=== PATIENT | male | born 1945 | race Caucasian/White ===

== ENCOUNTER 2019-09-24 20:26 | Inpatient (IN) | payer MEDICARE ==
[~2019-09-24] VITALS: Ht 177.8 cm; Wt 91.2 kg
[~2019-09-24 20:26] MED LIST: ACETAMINOPHEN325 M1 PO; AGGRENOX 25 MG1 EACH PO; AVODART0.5 MG PO; BACLOFEN 10MG T10 MG PO; BISACODYL SUPP10 MG RE; CLONAZEPAM 0.50.5 M1 PO; CLOTRIMAZOLE-BE15 GM TP; COQ-10100 MG PO; ENDOCET 5-3251 EACH PO; FELODIPINE 5 MG5 M1 PO; FLOVENT DISKUS50 MCG IH; GRALISE600 MG PO; HYDROCODON-ACE1 EAC7 PO; KAOPECTATE240 MG PO; LEVOTHYROXINE0.2 M1 PO; LEXAPRO20 MG PO; LIMBREL 500 MG500 MG PO; MIRALAX255 GM PO; MULTIVITAMINS1 EAC7 PO; MYLANTA GAS MA125 MG PO; NITROSTAT0.4 MG SL; OMEGA-31000 M1 PO; PANTOPRAZOLE SO40 M1 PO; POTASSIUM CHLO20 ME1 PO; TAMSULOSIN HCL0.4 M1 PO; VITAMIN D1000 UNI1 PO; VITAMINC500 PO; ZETIA10 MG PO; [UNRECOGNIZED DRUG - CODE] PO
[2019-09-24 20:36] VITALS: BP 136/76
[2019-09-24] MEDS ORDERED: LEVO-T75 MCG PO (21:10)
[2019-09-24] MEDS ORDERED: ASPERCREME1 EACH TOP (21:12)
[2019-09-24] MEDS ORDERED: AGGRENOX 25 MG1 EACH PO (21:12)
[2019-09-24] MEDS ORDERED: KEFLEX500 M1 PO (21:13)
[2019-09-24] MEDS ORDERED: DEPAKOTE 250MG250 M1 PO (21:13)
[2019-09-24] MEDS ORDERED: PROSCAR 5MG TABL5 M1 PO (21:13)
[2019-09-24] MEDS ORDERED: BRILINTA90 MG PO (21:15)
[2019-09-24] MEDS ORDERED: ZYPREXA2.5 MG PO (21:15)
[2019-09-24] MEDS ORDERED: ELMIRON 100 MG100 M1 PO (21:15)
[2019-09-24] MEDS ORDERED: MICONAZOLE5 GM (21:16)
[2019-09-24] MEDS ORDERED: ASACOL HD800 MG PO (21:16)
[2019-09-24] MEDS ORDERED: ZETIA10 MG PO (21:17)
[2019-09-24] MEDS ORDERED: NYSTATIN1 EA10 (21:17)
[2019-09-24] MEDS ORDERED: IRON325 M1 PO (21:17)
[2019-09-24] MEDS ORDERED: CALMOSEPTINE O3.5 GM (21:18)
[2019-09-24] MEDS ORDERED: VOLTAREN GEL 1100 G1 TOP (21:18)
[2019-09-24] MEDS ORDERED: SANTYL OINTMENT30 G1 TOP (21:18)
[2019-09-24] MEDS ORDERED: TENDERWRAP UNN1 EACH (21:19)
[2019-09-24] MEDS ORDERED: CETAPHIL1 EACH (21:19)
[2019-09-24 21:38] LABS: ABSOLUTE LYMPHOCYTES 0.4 thou/uL (0.8-5.3); ABSOLUTE MONOCYTES 1.8 thou/uL (0.0-1.2); ABSOLUTE NEUTROPHILS 12.6 thou/uL (1.6-8.1); BASOPHILS 0.2 %; HEMATOCRIT 40.4 % (42.0-52.0); HEMOGLOBIN 13.3 gm/dL (14.0-18.0); LYMPHOCYTES 2.9 %; MCH 27.6 pg (26.0-34.0); MCV 83.5 fL (80.0-100.0); MONOCYTES 12.2 %; MPV 7.2 fl. (7.2-11.1); NUCLEATED RBCS 0 /100WBC; PLATELET COUNT* 338 thou/uL (150-400); POLYS 84.7 %; RBC 4.84 mil/uL (4.50-6.00); RDW-CV 16.2 % (10.5-14.5); WBC 14.9 thou/uL (4.0-11.0)
[2019-09-24 21:44] LABS: ICTOTEST (BILI CONFIRMATORY) Negative (Negative); URINE BILIRUBIN 1+ (Negative); URINE BLOOD 3+ (Negative); URINE GLUCOSE-RANDOM NEGATIVE (Negative); URINE KETONES NEGATIVE (Negative); URINE LEUKOCYTES-REFLEX 1+ (Negative); URINE NITRITE-REFLEX NEGATIVE (Negative); URINE PROTEIN TRACE (Negative); URINE UROBILINOGEN 0.2 E.U./dl (0.2-1.0)
[2019-09-24 21:45] LABS: URINE CLARITY CLOUDY; URINE COLOR RED
[2019-09-24 21:48] LABS: CALCIUM 9.2 mg/dL (8.5-10.1); CREATININE 1.4 mg/dL (0.6-1.3); POTASSIUM 3.6 mmol/L (3.5-5.1)
[2019-09-24 21:50] LABS: INR 1.4; PROTIME 14.1 Seconds (9.20-11.50)
[2019-09-24 21:57] LABS: CASTS None Seen /LPF (None Seen); CRYSTALS None Seen /LPF (None Seen); SQUAMOUS NONE SEEN /LPF (0-3); URINE RBC >20 Many /HPF (0-2); URINE WBC-REFLEX >25 Many /HPF (0-5)
[2019-09-24 21:58] LABS: ALBUMIN 2.8 g/dL (3.4-5.0); TOTAL BILIRUBIN 0.5 mg/dL (<0.1-1.0); TOTAL PROTEIN 7.6 g/dL (6.4-8.2)
[2019-09-24 22:04] LABS: AMP/METHAMP Negative (Negative); BARBITURATES Negative (Negative); BENZODIAZEPINES Negative (Negative); COCAINE Negative (Negative); METHADONE Negative (Negative); OPIATES Negative (Negative); PCP Negative (Negative); THC Negative (Negative)
[2019-09-25 00:05] VITALS: BP 117/58
[2019-09-25 00:30] VITALS: BP 96/63
--- NOTE | 2019-09-25 05:59 | NUR ---
PATIENT ARRIVED AT MIDNIGHT. VERY DEHYDRATED ENCOURAGED PLENTY OF FLUIDS UPON ARRIVAL, TECH SWABBED AND CLEANED HIS MOUTH WE WIPED DOWN FACE, HANDS AND MOUTH AND EYES. HE APPEARS NEGLECTED WITH APPEARANCE. HE HAS A SIGNIFICANT PRESSURE ULCER ON HIS BUTTOCKS STAGE 2 POSSIBLY PHOTO IN CHART. I ADMINISTERED ZOFRAN AND MORPHINE AND HE WAS ABLE TO SLEEP THROUGH THE NIGHT. KEPT FLUIDS RUNNING AND DID HOURLY ROUNDS. HE WAS ABLE TO SPEAK THAT HE WAS IN SOME PAIN AND THAT HE PREFERRED TO KEEP THE LIGHTS ON ALL NIGHT.
--- NOTE | 2019-09-25 11:00 | NUR ---
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 PER NURSING PT.IS USUALLY LOUD AND UNCOOPERATIVE AT [facility]. HE IS QUIET HERE. SLEEPS ALOT. PER FRIEND, MABEL EDDY, SHE IS HIS DPOA. [facility] HAS GIVEN HIM 2 MORE WEEKS TO LIVE THERE DUE TO HIS BEHAVIORS. SHE HAS BEEN LOOKING AT OTHER FACILITIES AND SOME BEHAVIOR UNITS. CM WILL FOLLOW AND SPEAK WITH [facility] TOMORROW.
[2019-09-25 15:42] VITALS: BP 107/67
--- NOTE | 2019-09-25 18:20 | NUR ---
PT A&Ox2. REFUSED MORNING VITALS. REFUSED PO MEDICATIONS. STATING THAT HE HAS SOME BACK PAIN BUT REFUSED THE TYLENOL THAT IS ON HIS EMAR. IV PATENT, INFUSING. BEDREST. PRAFO BOOTS IN PLACE. LET US REPOSITION HIM TWICE. FALL PRECAUTIONS IN [place]. CALL LIGHT WITHIN REACH. WILL CONTINUE TO MONITOR.
[2019-09-26] VITALS: BP 111/58
[2019-09-26 03:54] LABS: ABSOLUTE LYMPHOCYTES 0.3 thou/uL (0.8-5.3); ABSOLUTE MONOCYTES 2.1 thou/uL (0.0-1.2); ABSOLUTE NEUTROPHILS 13.4 thou/uL (1.6-8.1); BASOPHILS 0.3 %; EOSINOPHILS 0.1 %; HEMATOCRIT 36.7 % (42.0-52.0); LYMPHOCYTES 1.9 %; MCH 27.5 pg (26.0-34.0); MCHC 32.6 g/dL (28.0-37.0); MCV 84.3 fL (80.0-100.0); NUCLEATED RBCS 0 /100WBC; POLYS 84.7 %; RBC 4.36 mil/uL (4.50-6.00); RDW-CV 16.2 % (10.5-14.5); WBC 15.8 thou/uL (4.0-11.0)
[2019-09-26 03:59] LABS: PLATELET COUNT* 262 thou/uL (150-400)
[2019-09-26 04:16] LABS: CALCIUM 8.2 mg/dL (8.5-10.1); POTASSIUM 4.1 mmol/L (3.5-5.1)
--- NOTE | 2019-09-26 04:55 | NUR ---
PATIENT EASILY AWAKENED. ORIENTED X 1-2. CONFLICTING REPONSES TO QUESTIONS. DID HAVE A CONVERSATION THAT PATIENT TALKED ABOUT HIS PREVIOUS WORK. ALTHOUGH RELUCTANT WITH CARES INCLUDING TURNS AND CARMELINA-CARE WITH INCONT VOIDS WAS COOPERATIVE AND NURSING WAS ABLE TO PROVIDED. VITAL SIGNS STABLE. IVF'S PER ORDER. DAILY AM ANTIBIOTIC. BEDREST. HIGH FALL RISK. BED ALARM UTILIZED. CONTINUE TO MONITOR.
[2019-09-26 11:20] VITALS: BP 118/49
[2019-09-26 16:00] VITALS: BP 120/46
--- NOTE | 2019-09-26 18:38 | NUR ---
ASSUMMED CARE OF PT AT 0730, PT USING FOUL LANGUAGE, WANTS TO BE LEFT ALONE IV PATENT AND INFUSING IN RIGHT FA, BUT CARES ABLE TO BE COMPLETED, NO HITTING OUT THIS SHIFT, PT INCONTINENT CONTINUOSLY OF FOUL SMELLING URINE AND SMEARS OF STOOL, REPOSTIONED EVERY 2 HOURS, PT TO HAVE CT SCANS, AND PT DID DRINK CONTRAST, CT COMPLETED, PT C/O PAIN IN OUTER AREA OF EAR, NOTED SOME REDNESS IN EAR BUT PT HAD BEEN PICKING AT HIS EAR, GLOVE TO LEFT HAND FROM PREVIOUS STROKE, BOOTS TO BILATERAL FEET, BUTTOCKS EXCORIATED, SCROTAL AREA REDDENED, SCABS, BRUISES NOTED, TOOK SMALL AMOUJNT OF CL LIQUIDS DIET, O2 ON AT 5 LITERS SATS OF 96% HOURLY ROUNDING COMPLETED, ASSESSMENT COMPLETE, WILL CONTINUE TO MONITOR.
[2019-09-27] VITALS: BP 121/77
--- NOTE | 2019-09-27 05:03 | NUR ---
PATIENT ALERT AND ORIENTED X 2. REMEMBERING NAMES OF STAFF AND RECALLING IN FRAGMENTS AND IN A REPETATIVE NATURE CONVERSATIONS WITH STAFF. CALLING OUT TONIGHT FOR HELP AND THEN DIRECTING STAFF FOR NEEDS. MANY OF THESE REQUESTS ARE ALSO REPETITIVE IN NATURE. AN EXAMPLE IS TO PUT HIS PHONE IN HIS POCKET. WHEN TOLD HIS PHONE IS NOT HERE HE REPLIES THAT IT IS AND WAS ON THE TABLE YESTERDAY. REMAINS INCONT OF URINE. TURNS AND CARMELINA-CARE Q2H. PRAFO'S TO BILAT FEET. ISOTONER GLOVE LEFT HAND. VITAL SIGNS STABLE ON 5L/MIN O2. CONTINUE TO MONITOR.
[2019-09-27 08:00] VITALS: BP 116/72
[2019-09-27 08:43] LABS: HEMATOCRIT 35.5 % (42.0-52.0); HEMOGLOBIN 11.8 gm/dL (14.0-18.0); MCH 27.4 pg (26.0-34.0); MCHC 33.2 g/dL (28.0-37.0); MCV 82.7 fL (80.0-100.0); NUCLEATED RBCS 0 /100WBC; PLATELET COUNT* 309 thou/uL (150-400); RBC 4.29 mil/uL (4.50-6.00); RDW-CV 16.1 % (10.5-14.5); WBC 14.2 thou/uL (4.0-11.0)
[2019-09-27 08:54] LABS: ALBUMIN 2.3 g/dL (3.4-5.0); CALCIUM 8.5 mg/dL (8.5-10.1); POTASSIUM 3.8 mmol/L (3.5-5.1); TOTAL BILIRUBIN 0.6 mg/dL (<0.1-1.0); TOTAL PROTEIN 6.9 g/dL (6.4-8.2)
[2019-09-27 09:12] LABS: ABSOLUTE LYMPHOCYTES 1.1 thou/uL (0.8-5.3); ABSOLUTE MONOCYTES 0.6 thou/uL (0.0-1.2); ABSOLUTE NEUTROPHILS 12.5 thou/uL (1.6-8.1); PLATELET ESTIMATE ADEQUATE
--- NOTE | 2019-09-27 12:15 | NUR ---
Nutrition: Pt admitted with UTI, AMS. Seen for pressure ulcer on coccyx and buttocks. Alb 2.3, prealb 12.8, WBC 14.2. H/o dementia, PVD, CVA, CAD. Wt: 201#. CLD. RD ordered Raul packets for wound healing. Increased nutrient needs R/T wound healing AEB pressure ulcer on coccyx. GOALS: >75% meal intake, Raul TID. Recommend MVI as well. Mild risk.
--- NOTE | 2019-09-27 13:56 | EKG ---
[place] [address] ELECTROCARDIOGRAM REPORT Name: SWATI BURNSD Rajesh Room: [address] IN [facility]#: [id number] Admission: 09/24/19 Attend Phys: Emma Hall, Discharge: Date of : 47 Date of Service: 09/24/192049 Report #: [id number] THIS REPORT FOR: cc: Salas Ruano MD, Todd A. MD Holkins,Satya De La Rosa MD [facility] ~ THIS REPORT FOR: //name// [facility] ED Test Date: 2019-09-24 Test Time: 20:50:23 Pat Name: JACE BURNS Department: Room: [facility] Gender: M Video Tape Editor: OK : 1945 Requested By: Xena Pate Order Number: [id number] MD: Satya Laird Measurements Intervals [place] Rate: 90 P: 60 IN: 236 QRS: -83 QRSD: 143 T: 73 QT: 395 QTc: 484 Interpretive Statements Sinus rhythm Prolonged IN interval RBBB and LAFB Baseline wander in lead(s) V5 No previous ECG available for comparison Electronically Signed On 09-25-2019 16:07:10 IRON CASTER by Satya Laird [email or web address] <ELECTRONICALLY SIGNED> By: Satya Laird MD, [facility] 09/25/191606 49 49 Satya Laird MD, [facility] /EPI
[2019-09-27 15:31] LABS: URINE BILIRUBIN NEGATIVE (Negative); URINE BLOOD 2+ (Negative); URINE CLARITY SL CLOUDY; URINE COLOR DARK YELLOW; URINE GLUCOSE-RANDOM NEGATIVE (Negative); URINE KETONES NEGATIVE (Negative); URINE LEUKOCYTES 1+ (Negative); URINE NITRITE NEGATIVE (Negative); URINE PROTEIN TRACE (Negative); URINE SPECIFIC GRAVITY 1.015 (1.005-1.030); URINE UROBILINOGEN 0.2 E.U./dl (0.2-1.0)
--- NOTE | 2019-09-27 15:36 | NUR ---
ATTEMPTED TO COMPLETE A BEDSIDE SWALLOW EVAL, BUT PT REFUSED PO INTAKE AFTER 2 SIPS OF THIN BY SPOON. PT EXHIBITED A WET VOCAL QUALITY WITH THE SECOND SIP OF THIN BY SPOON. NSH ALSO REPORTED OVERT S/S ASPIRATION/PENETRATION C THIN EARLIER THIS DATE. TO IMPROVE QUALITY OF LIFE AND LEVEL OF NUTRITION, RECOMMEND PUREE/NECTAR DIET AND FURTHER EVALUATION BY ST. NSG MAY DOWNGRADE PT TO NPO IF OVERT S/S ASPIRATION/PENETRATION NOTED C RECOMMENDED DIET.
[2019-09-27 15:39] LABS: BACTERIA >30 Many /HPF (None Seen); SQUAMOUS NONE SEEN /LPF (0-3); URINE RBC 0-2 Rare /HPF (0-2); URINE WBC >25 Many /HPF (0-5)
[2019-09-27 15:40] LABS: CASTS None Seen /LPF (None Seen); CRYSTALS None Seen /LPF (None Seen); MUCUS None Seen strn/LPF (None Seen)
[2019-09-27 16:00] VITALS: BP 121/69
[2019-09-27 17:52] LABS: CALCIUM 8.8 mg/dL (8.5-10.1); MAGNESIUM 1.6 mg/dL (1.8-2.4); POTASSIUM 3.3 mmol/L (3.5-5.1)
--- NOTE | 2019-09-27 18:38 | CON ---
[address] [address] CONSULTATION Name: GRANTJACE B Room: [address] IN .[place].#: [id number] Admission: 09/24/19 Attend Phys: Emma Hall MD Discharge: Date of : 47 Report #: [id number] THIS REPORT FOR: //name// cc: Salas Ruano MD, Todd A. MD ~ THIS REPORT FOR: //name// CC: Emma Ruano DATE OF SERVICE: 09/26/2019 HISTORY OF PRESENT ILLNESS: This is a 74-year-old male patient who is unable to provide any history at all. The patient is confused. He is talking irrelevantly. No family member is here. The history is from the records. [facility] was [facility] with altered mental status. I do not know what his baseline is. From the records, it indicates that the patient is usually loud and aggressive. He was more passive and he was brought in. When I see this patient, he is talking, but he is not aggressive, but he is not passive either and he continue to talk completely ____. His speech was intact. Record indicates and his exam confirmed that he had a stroke on the left side. When did it happened is not clear. REVIEW OF SYSTEMS: From the record indicates patient has cervical fusion, knee replacement, carpal tunnel syndrome, retinal detachment, cataract surgery, patellar surgeries, CVA, etc. This was his relevant 14-point review of system. PAST MEDICAL HISTORY: Positive for CVA. MEDICATIONS: The patient is on multiple medications. I am not sure why that is for. Some of them may be for behavior like valproic acid. FAMILY HISTORY: Unavailable. SOCIAL HISTORY: He lives in a [facility]. PHYSICAL EXAMINATION: GENERAL: The patient's examination was limited. He said that it is July. He talks, but does not make any sense. NEUROLOGICAL: Cranial nerve examination was attempted, but he was unable to carry out any instructions. 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 EYES: He could not understand the instruction to do the fundus examination. CARDIAC: His cardiac examination is unremarkable. RESPIRATORY: He does not appear to be short of breath. VITAL SIGNS: His blood pressure is 118/49, respiration is 18, pulse is 77, and [place] [address] CONSULTATION Name: SWATI BURNSDeepak Mena Room: [address]#: [id number] Admission: 09/24/19 Attend Phys: Emma Hall MD Discharge: Date of : 47 Report #: [id number] LABORATORY DATA: His white count is elevated at 15.8. His urinalysis shows more than 25 wbc's. IMAGING STUDIES: He did have a CT scan of the head that does not show any acute abnormality. IMPRESSION: This patient's clinical presentation is consistent with encephalopathy, most likely caused by the infections, especially urinary tract infection. We will try to reach the family, but emphasis should be as conservative as we can in this patient because of poor quality of the life and I will suggest treating the infection and see how he does. Thank you very much for this referral. <ELECTRONICALLY SIGNED> By: Juaquin Anaya MD 09/27/19 1838 09 0148Paropal Anaya MD /nt
--- NOTE | 2019-09-27 20:17 | NUR ---
PT ASSESSMENT CHARTED. VSS THROUGHOUT SHIFT. PT IS A&OX4 ANSWERING ALL MY QUESTIONS THIS MORNING AND BECAME INCREASINGLY AGGITATED AND CONFUSED THROUGHOUT THE DAY. HE REFUSED VARIOUS TASKS. SPEECH THERAPY SAW PATIENT AND WAS NOT ABLE TO DO A FULL EXAM. PT CHOKING ON SIPS OF WATER. SPEECH THERAPY UPDATED DIET FOR PUREED-SEE ORDER. THEY WILL REEVALUATE IN THE MORNING. BLADDER SCAN >1000, ATTEMPTED SWANSON CATH PLACEMENT WITHOUT SUCCESS. UROLOGY PLACED SWANSON AND 2400 OF URINE DRAINED, WITH ANOTHER 1200 OUT WITHIN THE NEXT HOUR. Q2H TURNS PATIENT HAS COCCYX WOUND.
--- NOTE | 2019-09-27 21:56 | NUR ---
Patient appears to be oriented x 3. He is soft spoken at this time but did tell me to leave him alone and get out of his room. He refused to have his vital signs taken and refused his HS meds. He is quiet at this time.
[2019-09-28 04:10] LABS: ABSOLUTE LYMPHOCYTES 0.5 thou/uL (0.8-5.3); ABSOLUTE MONOCYTES 1.4 thou/uL (0.0-1.2); ABSOLUTE NEUTROPHILS 7.7 thou/uL (1.6-8.1); BASOPHILS 0.2 %; EOSINOPHILS 0.3 %; HEMOGLOBIN 11.2 gm/dL (14.0-18.0); LYMPHOCYTES 5.2 %; MCH 27.6 pg (26.0-34.0); MCHC 32.9 g/dL (28.0-37.0); MCV 83.9 fL (80.0-100.0); MONOCYTES 14.1 %; MPV 7.8 fl. (7.2-11.1); NUCLEATED RBCS 0 /100WBC; PLATELET COUNT* 274 thou/uL (150-400); POLYS 80.2 %; RBC 4.06 mil/uL (4.50-6.00); RDW-CV 16.1 % (10.5-14.5); WBC 9.7 thou/uL (4.0-11.0)
[2019-09-28 04:24] LABS: CALCIUM 8.2 mg/dL (8.5-10.1); CREATININE 0.8 mg/dL (0.6-1.3); TOTAL BILIRUBIN 0.5 mg/dL (<0.1-1.0)
--- NOTE | 2019-09-28 07:55 | NUR ---
Oriented x 2. He has been uncooperative and not nice throughout this shift. He refused his meds, he refused vitals, he refused turns. He just hasn't wanted us to do anything with him and when we try to talk with him he whispers and when we aren't in the room he yells. I did get him to take levsin x 1 and that did seem to help him. ENGINEERING PSYCHOLOGIST was able to do mouthcare x 1. he has slept intermittenly.
[2019-09-28 08:00] VITALS: BP 147/85
--- NOTE | 2019-09-28 10:42 | NUR ---
PT REFUSING COGNITIVE THERAPY TREATMENT AND BEDSIDE SWALLOWING EVALUATION. PT FIRMLY STATING "I DONT WANT TO" AND "GET OUT OF HERE." FURTHER ATTEMPTS AT CONVERSATION BY ST, AND PT NODDED THAT HE WOULD HAVE A SNACK. WHEN ST ASKED TO RAISE HEAD OF BED, PT BEGAN YELLING TO "GET OUT OF HERE." EDUCATION PROVIDED ABOUT NOT CONSUMING PO IN RECLINED POSITION AND EDUCATION REGARDING ASSESSMENT TO DETERMINE UPGRADE FOR THIN LIQUIDS. PT REFUSED AGAIN.
[2019-09-28 16:25] VITALS: BP 97/43
--- NOTE | 2019-09-28 19:00 | NUR ---
PATIENT UNCOOPERATIVE AND HATEFUL TO STAFF THRU SHIFT. AGREEABLE TO REPOSITIONING LATER THIS AFTERNOON. SEE MAR. IV FLUIDS INFUSING W/O DIFF. FEEDING ASST W/ MEALS. GENERAL EDEMA TO EXTREMITIES AND SCROTAL AREA. SWANSON CATH PATENT. CALL LIGHT IN REACH. ~TJRN
[2019-09-28 22:00] VITALS: BP 147/57
--- NOTE | 2019-09-29 00:18 | NUR ---
DOCTOR CALLED AT 21:38 REQUESTING THAT LOVENOX, AGGRENOX AND TICAGRELAR BE HELD, ALREADY PASSED HIS MEDS AT THIS TIME. LOVENOX WAS HELD HE REFUSED THIS SHOT. THE MEDS WERE GIVEN AT APPROX 21:30. WILL RELAY TO DAY NURSE TO HOLD THESE MEDS, PROCEDURE SCHEDULED 0100.
[2019-09-29 04:24] LABS: ABSOLUTE EOSINOPHILS 0.2 thou/uL (0.0-0.7); ABSOLUTE LYMPHOCYTES 0.7 thou/uL (0.8-5.3); ABSOLUTE MONOCYTES 1.4 thou/uL (0.0-1.2); ABSOLUTE NEUTROPHILS 7.1 thou/uL (1.6-8.1); BASOPHILS 0.2 %; EOSINOPHILS 1.6 %; HEMATOCRIT 33.2 % (42.0-52.0); HEMOGLOBIN 10.9 gm/dL (14.0-18.0); LYMPHOCYTES 7.5 %; MCH 27.7 pg (26.0-34.0); MCHC 32.9 g/dL (28.0-37.0); MCV 84.3 fL (80.0-100.0); MONOCYTES 14.6 %; MPV 7.3 fl. (7.2-11.1); NUCLEATED RBCS 0 /100WBC; PLATELET COUNT* 231 thou/uL (150-400); POLYS 76.1 %; RBC 3.94 mil/uL (4.50-6.00); RDW-CV 16.1 % (10.5-14.5); WBC 9.4 thou/uL (4.0-11.0)
[2019-09-29 04:27] LABS: CALCIUM 7.6 mg/dL (8.5-10.1); CREATININE 0.7 mg/dL (0.6-1.3)
[2019-09-29 04:48] LABS: POTASSIUM 2.7 mmol/L (3.5-5.1)
--- NOTE | 2019-09-29 06:28 | NUR ---
PATIENT REPORTED PAIN AT BEDTIME WAS GIVEN SCHEDULED MEDS EXCEPT LOVENOX HE REFUSED. REFUSED ALL TURNS WELL. KEPT FLUIDS ON ALL EVENING AND K+ WAS 2.7 HUNG IV FOR REPLACEMENT IN AM. 1ST OF 6 DOSES. HE WAS ABLE TO SLEEP ALL EVENING. PLAN IS TO GET A HEAD MRI W/O CONTRAST TODAY AT 0100. WILL CONTINUE TO FOLLOW PLAN OF CARE.
--- NOTE | 2019-09-29 13:25 | NUR ---
WOUND NURSE: PATIENT SEEN TO ADDRESS SACRAL LESION WHICH MEASURES 4.5 X 5.5 X 0.1 CM. PRESENTS WITH PARTIAL THICKNESS TISSUE LOSS AND PERIWOUND REDNESS AND SEROUS DRAINAGE IN SMALL TO MODERATE AMOUNT. CLEANSED WITH WOUND CLEANSER AND GAUZE. APPLIED SKIN PREP TO INTACT PERIWOUND TISSUE FOR PROTECTION. APPLIED AQUACEL AG UNDER AN EXUDERM TO WOUND, THEN SECURED WITH SURESITE TRANSPARENT DRESSING. PATIENT IS ALREADY ON A Q 2 HOUR REPOSITIONING SCHEDULE. PATIENT HAS HEEL PROTECTORS ON BOTH FEET AND FREE OF BREAKDOWN NOW. PATIENT HAS RED, BLANCHEABLE INTACT SKIN ON BOTH ELBOWS, SO INITIATED USE OF ELBOW PROTECTORS TO HELP PREVENT BREAKDOWN. PATIENT IS NOT TEACHABLE AT THIS TIME DUE TO IMPAIRED COGNITIVE STATUS.
--- NOTE | 2019-09-29 15:10 | EEG ---
[address] [address] EEG STUDY REPORT Name: JACE BURNS Rajesh Room: [address] IN .R.#: [id number] Admission: 09/24/19 Attend Phys: Emma Hall MD Discharge: Date of : 47 Report #: [id number] THIS REPORT FOR: //name// CC: Emma Ruano DATE OF SERVICE: 09/27/2019 This patient is being evaluated for altered mental status. EEG was done by placing the electrode by standard 10-20 system of electrode placement. Both referential and sequential montages were used for recording. Background activity in this patient's EEG is about 6-7 Hz and 30 microvolts. A lot of artifact makes it very difficult to interpret this EEG. Photic stimulation is unremarkable. The patient went to sleep and that is associated with bilateral slowing and vertex sharp waves. Throughout the record, no active epileptiform activity was noticed. IMPRESSION: This patient's EEG is markedly abnormal because it is disorganized and poorly formed. They typically occur with encephalopathy, but is a nonspecific finding and can occur with dementia, effect of psychotropic medications, etc. Clinical correlation is recommended. <ELECTRONICALLY SIGNED> By: Juaquin Anaya MD 09/29/19 1510 1758 190Juaquin Anaya MD /nt
--- NOTE | 2019-09-29 15:30 | NUR ---
LATE ENTRY FOR 09/28/19- SPOKE WITH [facility]. SHE SAID PT.HAD BEEN GIVEN HIS 30 [facility] THEY CANNOT CARE FOR HIM ANY LONGER DUE TO HIS BEHAVIORS. HE IS BED/WC BOUND FROM PAST CVA. HE IS MELONY LIFT TO WC.
[2019-09-29 16:00] VITALS: BP 99/59
--- NOTE | 2019-09-29 16:00 | NUR ---
SPOKE WITH RAMESH/[facility] A [facility]. IF PT.DISCHARGED THIS WEEKEND RAMESH SAID HE CAN RETURN TO [facility] [place]. NO DISCHARGE TODAY. SPOKE WITH CARLOS ALBERTO ON PHONE, PHIL EDDY. SHE WOULD LIKE A CALL FROM EITHER TODAY OR TOMORROW. NOTIFIED DR.DELOS CABRERA AND PHIL'S NUMBER PUT ON FRONT OF CHART. SHE IS WANTING PT.TO GO TO INPT.PSYCH. DISCUSSED [facility] TELEPSYCH CONSULT THAT WAS DONE YESTERDAY. PT.HAS A OUTSIDE CM THAT PT.HIRED TO FIND HIM ANOTHER FACILITY TO GO TO . HER NAME IS LARA HURTADO. CARLOS ALBERTO GAVE ANY HOSPITAL PERSONNEL PERMISSION TO SPEAK WITH HER. DPOA SAID THEY HAVE NOT FOUND A FACILITY THAT WILL ACCEPT HIM YET. CM WILL FOLLOW.
--- NOTE | 2019-09-29 18:37 | NUR ---
PT IS A&Ox2-3. VITALS STABLE. IV PATENT. POTASSIUM RUNNING. TURNED Q2H. WOUND DRESSING CHANGED TODAY. DID NOT ATTEMPT TO HIT STAFF TODAY. REDIRECTED TWICE ON HIS LANGUAGE. FALL PRECAUTIONS IN PLACE. CALL LIGHT WITHIN REACH. WILL CONTINUE TO MONITOR.
[2019-09-29 20:21] VITALS: BP 90/54
--- NOTE | 2019-09-30 05:16 | NUR ---
PT TAKES ALL MEDS IN APPLESAUCE OR THICKENED APPLE JUICE. ENCOURAGED FLUIDS THROUGH SHIFT. RECEIVED FINAL DOSES 4-6 OF REPLACEMENT K+. SLEPT THROUGH NIGHT WITHOUT ANY ISSUES, NO REPORTS OF PAIN UPON ASSESSMENT. HE CALLED OUT FOR HELP A FEW TIMES BUT THEN DID NOT WANT ANYTHING. WAS FED CRACKERS, PUDDING AND APPLESAUCE. Q2 TURNS AND HOURLY ROUNDS MADE. PLAN IS TO D/C TO [place] TODAY. WILL CONTINUE TO FOLLOW PLAN OF CARE.
[2019-09-30 10:50] VITALS: BP 130/75
--- NOTE | 2019-09-30 13:00 | NUR ---
[facility] TO SEE PT AT [facility]. PER SHABBIR PT IS OK TO COME THIS WEEKEND. TRANSPORTATION ARRANGED FOR 1800
--- NOTE | 2019-09-30 14:28 | NUR ---
ASKED BY DR MARCELO TO SEE PT SHE FEELS HOSPICE WOULD BE APPROPRIATE FOR PT. DISCUSSED OPTION OF GOING TO [facility] WITH HOPSICE AND PT AGREES. SPOKE TO SHABBIR AT [facility]. [facility] CALLED. REFERRAL FAXED
--- NOTE | 2019-09-30 17:00 | NUR ---
RECEIVED CALL FROM PT DPOA GREGORIA WHO STATES SHE DOES NOT WANT PT TO GO TO [facility] WITH HOSPICE. SHE FEELS PT SHOULD GO TO A [facility] UNIT SINCE HE IS COMBATIVE AND BELIGERENT TO STAFF. DISCUSSED PSYCH CONSULT WITH DPRALF. NURSE ANSWERED QUESTIONS. SHE STATES WOULD LIKE TO COME IN AM TO TALK TO DR MARCELO BEFORE PT IS DISCHARGED WITH HOSPICE. CALLED [facility] AND CANCELLED TRANSFER PER DR MARCELO. IF PT IS TO LEAVE IN THE AM REPORT IS TO BE CALLED TO TO .
[2019-09-30 17:22] VITALS: BP 130/75
--- NOTE | 2019-09-30 18:51 | NUR ---
PATIENT UNCOOPERATIVE W/ CARES. PATIENT VERBALLY ABUSIVE TO STAFF, REEDUCATED FREQUENTLY REGARDING COMPLIANCE AND RESPECT FOR STAFF. COMFORT BATH AND COMPLETE LINEN CHANGE DONE THIS AM. DRSG TO COCCYX INTACT. BARRIER CREAM APPIED. SWANSON CATH NOTED PATIENT, CARMELINA CARES/SKIN CARES DONE. ASST W/ FEEDING DONE. CALL LIGHT IN REACH. JOSEFINA BOOTS BLE, HOB UP TO PATIENT COMFORT. GLOVE TO LT HAND ON. HRLY ROUNDS DONE. ~TJRN
--- NOTE | 2019-10-01 06:52 | NUR ---
Oriented x 2 with drowsiness. He did say some negative things and refused to let me do his vitals. He did cooperate andtook a couple of pills whole with apple sauce. He was thristy and drank 3 apple juice. And has not used much bad language. He did say now get the hell out of here. He did let us repositione him x 3. And he did do mouthcare. He had tylenol at 0000 and has slept since then.
[2019-10-01 08:30] VITALS: BP 120/70
[2019-10-01] MEDS ORDERED: SEROQUEL 50 MG50 MG PO (11:52)
[2019-10-01] MEDS ORDERED: SEROQUEL 25 MG25 M1 PO (11:52)
[2019-10-01] MEDS ORDERED: PROBIOTIC1 EAC4 PO (11:52)
[2019-10-01] MEDS ORDERED: HALOPERIDOL5 MG/1 ML IM (11:52)
[2019-10-01] MEDS ORDERED: AUGMENTIN 875-1 EACH PO (11:52)
[2019-10-01 15:40] VITALS: BP 130/75
--- NOTE | 2019-10-01 15:40 | NUR ---
PATIENT UNCOOERATIVE W/ STAFF, USING INAPPROP LANGUAGE TO STAFF MEMBERS AND HITTING, PINCHING. PATIENT REEDUCATED REPEATEDLY ABOUT RESPECT OF STAFF AND COMPLIANCE OF CARES. SWANSON CATH PATENT. BED BATH DONE, REPOSITIONING DONE WHEN PATIENT AGREEABLE. EMS IN TO RECEIVE PATIENT FOR TRANSFER BACK TO [facility]. EMS PERSONNEL HAD TELEPHONE CONVERSATION WITH DPOA. BELONINGS GATHERED. IV SITE DISCONTINUED, CATH TIP INTACT. COTTON BALL/TAPE APPLIED TO SITE. SWANSON CATH DATED. BOOTS ON TO BLE. ~TJRN
== END 2019-10-01 15:40 | disposition hospice, inpatient (51) | DRG 177 ==
LOC: M.ERS 20:26 → M.ORTHSURG 23:05 → M.TBA-ER 23:05 → M.ORTHSURG 09-25 00:22
PROVIDERS: Internal Medicine; Nurse Practitioner Adult Health; Physician Assistant; ADMIT Internal Medicine
DX: J69.0 Pneumonitis due to inhalation of food and vomit (principal); G93.41 Metabolic encephalopathy; R65.11 Systemic inflammatory response syndrome (SIRS) of non-infectious origin with acute organ dysfunction; J96.91 Respiratory failure, unspecified with hypoxia; N17.9 Acute kidney failure, unspecified; F01.51 Vascular dementia, unspecified severity, with behavioral disturbance; I69.354 Hemiplegia and hemiparesis following cerebral infarction affecting left non-dominant side; Z16.30 Resistance to unspecified antimicrobial drugs; J98.19 Other pulmonary collapse; N13.6 Pyonephrosis; R33.9 Retention of urine, unspecified; N40.1 Benign prostatic hyperplasia with lower urinary tract symptoms; B96.20 Unspecified Escherichia coli [E. coli] as the cause of diseases classified elsewhere; I73.9 Peripheral vascular disease, unspecified; I25.10 Atherosclerotic heart disease of native coronary artery without angina pectoris; E78.5 Hyperlipidemia, unspecified; I10 Essential (primary) hypertension; E89.0 Postprocedural hypothyroidism; F41.9 Anxiety disorder, unspecified; M19.90 Unspecified osteoarthritis, unspecified site; I89.0 Lymphedema, not elsewhere classified; Z96.651 Presence of right artificial knee joint; Z98.42 Cataract extraction status, left eye; Z98.41 Cataract extraction status, right eye; Z88.1 Allergy status to other antibiotic agents; Z88.8 Allergy status to other drugs, medicaments and biological substances; Z79.82 Long term (current) use of aspirin; Z79.899 Other long term (current) drug therapy; Z98.1 Arthrodesis status; Z85.850 Personal history of malignant neoplasm of thyroid; Z74.01 Bed confinement status; Z90.49 Acquired absence of other specified parts of digestive tract; Z87.891 Personal history of nicotine dependence; I25.2 Old myocardial infarction; Z83.3 Family history of diabetes mellitus; Z82.49 Family history of ischemic heart disease and other diseases of the circulatory system; Z82.3 Family history of stroke